=== PATIENT | female | born 1995 | race Caucasian/White ===

== ENCOUNTER 2021-10-22 05:45 | Inpatient (IN) ==
[2021-10-22] MEDS ORDERED: *HR* Nalbuphine 10 MG/ML AMPUL IV PRN (06:03)
[2021-10-22] MEDS ORDERED: Lidocaine 1% 20 ML MDV INFILT PRN (06:03)
[2021-10-22] MEDS ORDERED: Metoclopramide 10 MG/2 ML VIAL IVP PRN (06:03)
[2021-10-22] MEDS ORDERED: Famotidine 20 MG/2 ML VIAL IVP PRN (06:03)
[2021-10-22] MEDS ORDERED: miSOPROStoL 25 MCG TABLET VG PRN (06:03)
[2021-10-22] MEDS ORDERED: Azithromycin 500 MG in 0.9 % Sodium Chloride 250 ML IVPB PRN (06:03)
[2021-10-22] MEDS ORDERED: Naloxone 0.4 MG/ML INJ IVP PRN ×2 (06:03→10:19)
[2021-10-22] MEDS ORDERED: Ondansetron 4 MG/2 ML VIAL IVP PRN ×2 (06:03→10:19)
[2021-10-22 07:04] LABS: Basophils % 0.2 %; Eosinophils # 0.1 K/mcL (0.0-0.6); Eosinophils % 0.7 %; Hematocrit 35.3 % (35.3-44.9); Hemoglobin 11.7 g/dL (11.5-15.4); Immature Granulocytes % 0.5 % (0-4); Immature Platelets 9.2 % (1.1-6.1); Lymphocytes % 19.9 %; Mean Corpuscular HGB Conc 33.1 g/dL (31.6-35.5); Mean Corpuscular Volume 87.4 fL (83.0-100.0); Mean Platelet Volume 11.6 fL (9.4-12.4); Monocytes # 0.8 K/mcL (0.0-1.3); Neutrophils # 6.9 K/mcL (1.6-8.9); Platelet Count 152 K/mcL (140-400); Red Blood Count 4.04 M/mcL (3.82-4.97); Red Cell Distribution Width 13.7 % (11.5-14.5); Segmented Neutrophils % 70.7 %; White Blood Count 9.8 K/mcL (4.3-11.1)
[2021-10-22] MEDS ORDERED: Bupivacaine-MPF 0.25% 10 ML VIAL EP ONE (10:19)
[2021-10-22] MEDS ORDERED: *HR* FentaNYL (PF) 100 MCG/2 ML VIAL EP ONE (10:19)
[2021-10-22] MEDS ORDERED: Ropivacaine/PF 0.2% 20 ML VIAL EP ONE (10:19)
[2021-10-22] MEDS ORDERED: EPHEDrine 50 MG/ML VIAL IVP PRN (10:19)
[2021-10-22] MEDS ORDERED: Epidural Premix (fent/bupiv) 110 ML EP SCH (10:30)
[2021-10-22] MEDS: Ringers Solution, Lactated 1,000 ML IVC SCH ×3 (10:34→20:00)
[2021-10-22] MEDS ORDERED: Ropivacaine/PF 0.2% 20 ML VIAL ONE ×2 (10:47→18:36)
[2021-10-22] MEDS: Oxytocin 20 units/ LR 1000 mL 20 UNIT/1,000 ML BAG IVC SCH ×2 (12:55→23:27)
[2021-10-22] MEDS ORDERED: Lanolin 7 G OINT...G. TP PRN (23:50)
[2021-10-22] MEDS ORDERED: Oxytocin 20 units/ LR 1000 mL 20 UNIT/1,000 ML BAG IVC SCH (23:50)
[2021-10-22] MEDS ORDERED: Benzocaine/Menthol 56 GM AEROSOL SPRAY TP PRN (23:50)
[2021-10-22] MEDS ORDERED: Measles/Mumps/Rubella Vacc 0.5 ML VIAL SQ PRN (23:50)
[2021-10-22] MEDS ORDERED: Ondansetron ODT 4 MG TAB.RAPDIS SL PRN (23:50)
[2021-10-22] MEDS ORDERED: Rho Immune Globulin 1,500 UNIT SYRINGE IM PRN (23:50)
[2021-10-23] MEDS: Ibuprofen 600 MG TABLET PO SCH ×3 (00:11→13:10)
[2021-10-23] MEDS: Acetaminophen 325 MG TABLET PO SCH ×2 (00:59→13:11)
[2021-10-23 07:18] LABS: Basophils % 0.2 %; Eosinophils # 0.1 K/mcL (0.0-0.6); Eosinophils % 0.7 %; Hematocrit 34.3 % (35.3-44.9); Hemoglobin 10.6 g/dL (11.5-15.4); Immature Granulocytes % 0.3 % (0-4); Lymphocytes % 16.4 %; Mean Corpuscular HGB Conc 30.9 g/dL (31.6-35.5); Mean Corpuscular Hemoglobin 29.4 pg (28.0-33.3); Mean Platelet Volume 11.1 fL (9.4-12.4); Monocytes # 1.2 K/mcL (0.0-1.3); Monocytes % 9.8 %; Neutrophils # 8.8 K/mcL (1.6-8.9); Platelet Count 141 K/mcL (140-400); Red Blood Count 3.61 M/mcL (3.82-4.97); Red Cell Distribution Width 13.6 % (11.5-14.5); Segmented Neutrophils % 72.6 %; White Blood Count 12.2 K/mcL (4.3-11.1)
[2021-10-23 07:32] VITALS: O2SAT 98
[2021-10-23] MEDS ORDERED: Prenatal Vit/FA 1 EACH TABLET PO SCH (09:00)
[2021-10-23 17:03] VITALS: BP 102/62; PULSE 82; TEMP 97.8
== END 2021-10-23 19:01 | disposition home or self-care (01) | DRG 806 ==
LOC: 1NENULAB 05:45 → 1NENUOBS 23:50
PROVIDERS: ADMIT Obstetrics & Gynecology; ATTEND Obstetrics & Gynecology